=== PATIENT | male | born 1940 | race Caucasian/White ===

== ENCOUNTER 2016-06-05 13:02 | Observation (INO) | payer MEDICARE ==
[2016-06-05] MEDS ORDERED: ASPIRIN 325 MG TABLET PO ONE (13:32)
--- NOTE | 2016-06-05 13:32 | ER Document Report ---
ED Neuro Symptoms/Deficit - General Chief Complaint: S/S of Possible Stroke Stated Complaint: FORGETFULLNESS Notes: The patient is a 76-year-old male, past medical history hypertension, presents with sudden onset of confusion that began at 11:30 today. According to his who is at bedside, the patient was driving into town and then forgot where he was supposed to go and began to drive on the other side of the road. The patient is still confused and cannot remember the month. At baseline, the patient is independent and has a sharp intellect. Denies chest pain, shortness of breath, fevers, cough, weakness, numbness, headache, head injury TRAVEL OUTSIDE OF THE [place] IN LAST 30 DAYS: No Past Medical History - Social History Smoking Status: Former Smoker Family History: Reviewed & Not Pertinent Review of Systems - Review of Systems Notes: REVIEW OF SYSTEMS: CONSTITUTIONAL: -fevers, -chills EENT: -eye pain, -difficulty swallowing, -nasal congestion CARDIOVASCULAR:-chest pain, -syncope. RESPIRATORY: -cough, -SOB GASTROINTESTINAL: -abdominal pain, -nausea, -vomiting, -diarrhea GENITOURINARY: -dysuria, -hematuria MUSCULOSKELETAL: -back pain, -neck pain SKIN: -rash or skin lesions. HEMATOLOGIC: -easy bruising or bleeding. LYMPHATIC: -swollen, enlarged glands. NEUROLOGICAL: -headache, +confusion PSYCHIATRIC: -anxiety, -depression. ALL OTHER SYSTEMS REVIEWED AND NEGATIVE. Physical Exam - Notes Notes: PHYSICAL EXAMINATION: GENERAL: Well-appearing, well-nourished and in no acute distress. HEAD: Atraumatic, normocephalic. EYES: Pupils equal round and reactive to light, extraocular movements intact, sclera anicteric, conjunctiva are normal. ENT: nares patent, oropharynx clear without exudates. Moist mucous membranes. NECK: Normal range of motion, supple without lymphadenopathy LUNGS: Breath sounds clear to auscultation bilaterally and equal. No wheezes rales or rhonchi. HEART: Regular rate and rhythm without murmurs ABDOMEN: Soft, nontender, normoactive bowel sounds. No guarding, no rebound. No masses appreciated. EXTREMITIES: Normal range of motion, no pitting or edema. No cyanosis. NEUROLOGICAL: Cranial nerves grossly intact. Normal speech, normal gait. Normal sensory, motor, and reflex exams. Knows year he was born, does not know current month. PSYCH: Normal mood, normal affect. SKIN: Warm, Dry, normal turgor, no rashes or lesions noted. Course - Re-evaluation Re-evalutation: On arrival, patient immediately seen and stroke alert called. CT did not show any acute changes. NIHSS score of 1. Symptoms improved after 1.5 hours. Not a TPA candidate due to the low NIH stroke scale and rapidly improving symptoms. ABCD2 score is 4. Aspirin provided. Spoke to Dr. Mckeon and will bring patient in as telemetry observation for further evaluation treatment. Patient and comfortable with plan. - Laboratory Result Diagrams: 06/05/16 13:20 06/05/16 13:20 - Diagnostic Test Radiology reviewed: Image reviewed, Reports reviewed - EKG Interpretation by Me EKG shows normal: Sinus rhythm, [place], Intervals, QRS Complexes, ST-T Waves Critical Care Note - Critical Care Note Total time excluding time spent on procedures (mins): 45 ED Alteplase Inc/Exc Criteria - Inclusion Criteria: 1: Patient presented to ED within 3 hours of acute ischemic stroke symptom onset ? -: Yes 2: Did baseline CT exclude intracranial hemorrhage and/or other risk factors? -: Yes 3: Is the age of the patient 18 years of age or greater? -: Yes : If any of the above questions are answered "NO" then stop, patient is not a candidate for Alteplase, : If all of the above questions are answered "YES" then continue with Exclusion Criteria. - Exclusion Criteria: 1: Is there evidence of intracranial hemorrhage on baseline CT? -: No 2: Is there suspicion of subarachnoid hemorrhage (even if CT negative)? -: No 3: Is there a history of serious head trauma, recent previous stroke or OH within 3 months? -: No 4: Does the patient have a clinical presentation consistent with OH or post-OH pericarditis? -: No 5: Is there history of intracranial hemorrhage? -: No 6: On repeated measurement is Systolic BP greater than 185mmHg or Diastolic BP greater that 110 mmHg and is aggressive treatment needed to reduce blood pressure to these limits (e.g. constant infusion of an anti-hypertensive)? -: No 7: Did the patient awake with stroke symptoms? -: No 8: Has the patient had a lumbar puncture or an arterial puncture at a non- compressile site within 7 days? -: No 9: With in the last 14 days did the patient have surgery or major trauma? -: No 10: Is the patient or less than 2 weeks? -: No 11: Was there any active bleeding or acute trauma? -: No 12: Does the patient have intracranial neoplasm, arteriovenous malformation or aneurysm? -: No 13: Does the patient have abnormal glucose (less than 50 or greater than 400mg/ dl)? Record glucose in Comment. -: No 14: Patient has rapidly improving symptoms at the time Alteplase is to be Administered. -: No 15: Does the patient have any risks for bleeding, including but not limited to: a.: Current use of Coumadin with PT greater than 15 seconds or INR greater than 1.7. b.: Current use of Pradaxa (Dabigatran). c.: Heparin administereed within the past 48 hours and PTT elevated. d.: Platelet count less than 100,000/mm. e.: Major surgery or serious trauma within 14 days. f.: Gastrointestinal or gynecological urinary bleeding within 14 days. g.: Myocardial Infarction (OH) within 3 months. -: No : If the answer to any of the above questions is "YES" then stop, the patient is not a candidate for Alteplase. : If the answer to all of the above questions is "NO" then the patient may be eligible for the Administration of Alteplase. : If the patient is noted to have seizure activity at onset of Stroke symptoms; Consult Neurologist for further evaluation. - The patient is: -: Included and is eligible to receive Alteplase. *Initiate bed placement at higher level of care* --: No Reviewd risks & benefits of thrombolytic therapy: I have reviewed the risks and benefits of thrombolytic therapy with the patient and/or his/her family. Yes -: Excluded and not eligible to receive Alteplase for the above exclusions. --: Yes - Low NIHSS -: Excluded and not eligible to receive Alteplase for other reasons (specify in comments): - Diagnosis of TIA: -: Patient presented with transient symptoms that are now resolved and no other neurologic findings are currently present. List symptoms in comments. -: Patient is NOT a candidate for tPA. -: ____(put name in comment) has been consulted for admission and continued evaluation of risk factor assessment. ED NIH Stroke Scale - NIH Stroke Scale When completed:: Before Alteplase *: 1. NIH scale should be completed with appropriate accompanying assessment tools. *: 2. The NIH should reflect what the patient is capable of doing and should not be coached by the clinician. 1a. Level of Consciousness: 0=Alert;keenly responsive -: 1=Drowsy -: 2=Obtunded -: 3=Coma/unresponsive or reflex to noxious stimuli. 1a. Responses: 0 1b. Orientation Questions: a. What month is it? -: b. How old are you? -: 0=Answers both questions correctly. -: 1=Answers one question correctly or patient is intubated or has orotracheal trauma. -: 2=Answers neither question correctly. 1b. Responses: 1 1c. Response to commands: a. Open and close eyes? -: b. Ore Crushing [employer]or and release hand? -: Credit is given despite weakness. Demonstration of task is permitted. Substitute command if hands cannot be used. -: 0=Performs both tasks correctly -: 1=Performs one task correctly -: 2=Performs neither task correctly 1c. Responses: 0 2. Gaze: Establish eye contact and instruct patient to "Follow my finger" -: 0=Normal -: 1=Partial gaze palsy. Gaze is abnormal in one or both eyes, but where forced deviation or total gaze paresis is not present. -: 2=Forced deviation or total gaze paresis. 2. Responses: 0 3. Visual [place]: Sees fingers in all four quadrants. -: 0=No visual loss. -: 1=Partial hemianopsia. -: 2=Complete hemianopsia. -: 3=Bilateral hemianopsia (including Cortical blindness) 3. Responses: 0 4. Facial Movement: Instruct patient to: -: a. Show me your teeth -: b. Raise your eyebrows -: c. Close your eyes -: d. Smile -: 0=Normal symmetrical movement -: 1=Minor paralysis (flattened nasolabial fold, asymmetry on smiling). -: 2=Partial paralysis (total or near total paralysis of lower face). -: 3=Complete paralysis of upper and lower face 4. Responses: 0 5. Motor functions (left arm): Alternate sides and extend each arm with palms down (90 degrees if sitting or 45 degrees for supine). -: 0=No drift;limb holds for full 10 seconds. -: 1=Drift; limb holds but drifts down before full 10 seconds, but does not hit bed. -: 2=Some effort against gravity; limb cannot get to or maintain position. -: 3=No effort against gravity; limb falls. -: 4=No movement. -: UN=Amputation, joint fusion, explain in comments. 5. Responses (left arm): 0 5. Motor Functions (right arm): Alternate sides and extend each arm with palms down (90 degrees if sitting or 45 degrees for supine). -: 0=No drift;limb holds for full 10 seconds. -: 1=Drift; limb holds but drifts down before full 10 seconds, but does not hit bed. -: 2=Some effort against gravity; limb cannot get to or maintain position. -: 3=No effort against gravity; limb falls. -: 4=No movement. -: UN=Amputation, joint fusion, explain in comments. 5. Responses (right arm): 0 6. Motor Functions (left leg): With patient lying supine, alternate sides and extend each leg (30 degrees always while supine). -: 0=No drift, leg holds position for full 5 seconds -: 1=Drift; leg falls before full 5 seconds but does not hit bed. -: 2=Some effort against gravity, leg falls to bed but some effort against gravity. -: 3=No effort against gravity, leg falls to bed immediately. -: 4=No movement. -: UN=Amputation, joint fusion; explain in comments. 6. Responses (left leg): 0 6. Motor Functions (right leg): With patient lying supine, alternate sides and extend each leg (30 degrees always while supine). -: 0=No drift, leg holds position for full 5 seconds -: 1=Drift; leg falls before full 5 seconds but does not hit bed. -: 2=Some effort against gravity, leg falls to bed but some effort against gravity. -: 3=No effort against gravity, leg falls to bed immediately. -: 4=No movement. -: UN=Amputation, joint fusion; explain in comments. 6. Responses (right leg): 0 7. Limb Ataxia: With eyes open instruct patient to: -: a. "Touch your finger to your nose". -: b. "Touch your heel to your lamb" -: 0=Absent -: 1=Present in one limb. -: 2=Present in two limbs. -: UN=Amputation or joint fusion; explain in comments. 7. Responses: 0 8. Sensory: Test sensation using pinprick or noxious stimuli. Test as many body parts as possible. -: 0=Normal;no sensory loss -: 1=Mile to moderate sensory loss (patient feels pin prick but is less sharp on affected side). -: 2=Severe or total sensory loss. 8. Responses: 0 9. Best Language: Instruct patient to: -: a. "Describe what you see in this picture." -: b. "Name the items in this picture." -: c. "Read these sentences." -: 0=No aphasia, normal -: 1=Mild to moderate aphasia. -: 2=Severe aphasia -: 3=Mute, global aphasia, no usable speech or auditory comprehension. 9. Responses: 0 10. Articulation, Dysarthia: Instruct patient to: -: "Read these words" or "Repeat these words" -: 0=Normal -: 1=Mild to moderate; patient may slur some words but can be understood without difficulty. -: 2=Severe; patients speech so slurred as to be unintelligible in the absence of dysphasia. -: UN=Intubated or other physical barrier, explain in comments. 10. Responses: 0 11. Extinction or inattention: 0=No abnormality -: 1= Visual, tactile, auditory, spatial, or personal inattention or extinction to bilateral simulation in one or the sensory modalities. -: 2=Profound denis-inattention or denis-inattention to more than one modality; does not recognize own hand. 11. Responses: 0 Total Score: 1 Discharge - Discharge Clinical Impression: Confusion TIA (transient ischemic attack) Qualifiers: Transient cerebral ischemia type: other Qualified Code(s): G45.8 - Other transient cerebral ischemic attacks and related syndromes Condition: Good Disposition: ADMITTED OBSERVATION Referrals: SONJA SORENSEN MD [Primary Care Provider] - Follow up as needed
[2016-06-05 13:42] LABS: ABSOLUTE EOSINOPHILS # (AUTO) 0.3 10^3/uL (0.0-0.6); ABSOLUTE LYMPHOCYTES (AUTO) 2.3 10^3/uL (0.5-4.7); ABSOLUTE MONOCYTES (AUTO) 0.7 10^3/uL (0.1-1.4); BASOPHILS % (AUTO) 0.3 % (0-2); EOSINOPHILS % (AUTO) 3.2 % (0-6); HEMATOCRIT 44.1 % (37.9-51.0); HEMOGLOBIN 14.4 g/dL (13.5-17.0); HGB HCT DIFFERENCE -0.9; LYMPHOCYTES % (AUTO) 27.5 % (13-45); MEAN CORPUSCULAR HEMOGLOBIN 29.4 pg (27.0-33.4); MEAN CORPUSCULAR HGB CONC 32.7 g/dL (32.0-36.0); MEAN CORPUSCULAR VOLUME 90 fl (80-97); MONOCYTES % (AUTO) 8.2 % (3-13); PROTHROMBIN TIME 13.4 SEC (11.4-15.4); RED BLOOD COUNT 4.91 10^6/uL (4.35-5.55); RED CELL DISTRIBUTION WIDTH 14.9 % (11.5-14.0); SEGMENTED NEUTROPHILS % (AUTO) 60.8 % (42-78); WHITE BLOOD COUNT 8.2 10^3/uL (4.0-10.5)
[2016-06-05 13:44] LABS: PARTIAL THROMBOPLASTIN TIME 29.4 SEC (23.5-35.8)
[2016-06-05 13:59] LABS: ALANINE AMINOTRANSFERASE 36 U/L (21-72); ALBUMIN 3.5 g/dL (3.5-5.0); ALKALINE PHOSPHATASE 78 U/L (38-126); ANION GAP 12 (5-19); ASPARTATE AMINO TRANSFERASE 23 U/L (17-59); BILIRUBIN,TOTAL 0.3 mg/dL (0.2-1.3); BLOOD UREA NITROGEN 16 mg/dL (7-20); CALCIUM 8.3 mg/dL (8.4-10.2); CARBON DIOXIDE 24 mmol/L (22-30); CHLORIDE 110 mmol/L (98-107); CREATINE KINASE 99 U/L (55-170); CREATININE RESULT 0.87 mg/dL (0.52-1.25); GLUCOSE 92 mg/dL (75-110); POTASSIUM 3.9 mmol/L (3.6-5.0); SODIUM 146.4 mmol/L (137-145); TOTAL PROTEIN 6.7 g/dL (6.3-8.2)
[2016-06-05 14:11] LABS: CREATINE KINASE MB 3.39 ng/mL (<4.55); TROPONIN I 0.013 ng/mL
[2016-06-05] MEDS ORDERED: ACETAMINOPHEN 325 MG TABLET PO PRN (17:31)
[2016-06-05] MEDS ORDERED: LABETALOL HCL INJ 20 MG/4 ML DISP.SYRIN IV PRN (17:31)
[2016-06-05] MEDS ORDERED: ALBUTEROL SULFATE 0.083% NEB 2.5 MG/3 ML AMPUL NEB PRN (17:39)
[2016-06-05] MEDS ORDERED: ENOXAPARIN SODIUM INJ 40 MG/0.4 ML DISP.SYRIN SUBCUT ONE ×2 (19:00→23:30)
--- NOTE | 2016-06-05 19:02 | PDOC H&P ---
History of Present Illness Admission Date/PCP: 06/05/16 18:41 Primary care provider: SONJA SORENSEN [facility]: [facility] Oncologist: Dr. Juarez [facility] Patient complains of: Confusion History of Present Illness: WENDY MCGOWAN is a 76 year old male who presents for sudden onset at 11:30 AM of confusion lasting about 2 hours. Patient's is at the bedside and states that they were parked in a parking lot at a local restaurant and that patient parked the wrong direction in the parking space. At that time he did not know where he was and did not remember that they had gone to [facility] to by [employer] for the roof. He still does not recall this episode. His behavior improved upon presentation to the emergency department. He has no focal deficits. He has had prior left carotid endarterectomy about 10 years ago but did not have a stroke/TIA at that time. 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 Past Medical History Pulmonary Medical History: Reports: Chronic Obstructive Pulmonary Disease (COPD) , Other - Left lung malignancy/resection 2016 Neurological Medical History: Reports: Other - Neuropathy Renal/ Medical History: Reports: Other - BPH Malignancy Medical History: Reports: Lung Cancer - Left lung malignancy/ resection 2016 Past Surgical History Past Surgical History: Reports: Other - Left lung resection 2016 Social History Information Source: Patient, Relative Lives with: Spouse/Significant other Smoking Status: Former Smoker Frequency of Alcohol Use: None Hx Recreational Drug Use: No Hx Prescription Drug Abuse: No - Advance Directive Resuscitation Status: Full Code Family History Family History: Reviewed & Not Pertinent Parental Family History Reviewed: Yes Children Family History Reviewed: Yes Sibling(s) Family History Reviewed.: Yes Medication/Allergy Home Medications: Aclidinium [place] [Tudorza Pressair for Inh] 400 mcg PO BID 06/05/16 Atorvastatin Calcium 20 mg PO QHS 06/05/16 Budesonide/Formoterol Fumarate [Symbicort 160-4.5 Mcg Inhaler] 06/05/16 Fluorometholone [Fluorometholone] 1 drop OU BID 06/05/16 Isosorbide Mononitrate [Isosorbide Mononitrate ER] 60 mg PO QHS 06/05/16 Potassium Chloride 10 meq PO BID 06/05/16 Roflumilast [Daliresp] 500 mcg PO DAILY 06/05/16 Tamsulosin HCl [Tamsulosin HCl] 0.4 mg PO DAILY 06/05/16 Topiramate [Topiramate] 200 mg PO BID 06/05/16 Review of Systems Constitutional: ABSENT: chills, fever(s), headache(s), weight gain, weight loss Eyes: ABSENT: visual disturbances Ears: ABSENT: hearing changes Cardiovascular: ABSENT: chest pain, dyspnea on exertion, edema, orthropnea, palpitations Respiratory: ABSENT: cough, hemoptysis Gastrointestinal: ABSENT: abdominal pain, constipation, diarrhea, hematemesis, hematochezia, nausea, vomiting Genitourinary: ABSENT: dysuria, hematuria Musculoskeletal: ABSENT: joint swelling Integumentary: ABSENT: rash, wounds Neurological: PRESENT: confusion, memory loss - Patient is amnestic to the time surrounding his confusion today. ABSENT: abnormal gait, abnormal speech, dizziness, focal weakness, lack of coordination, numbness, syncope, weakness Psychiatric: ABSENT: anxiety, depression, homidical ideation, suicidal ideation Endocrine: ABSENT: cold intolerance, heat intolerance, polydipsia, polyuria Hematologic/Lymphatic: ABSENT: easy bleeding, easy bruising Physical Exam Vital Signs: Temp Pulse Resp BP Pulse Ox 77 20 173/76 H 97 06/05/16 16:06 06/05/16 17:47 06/05/16 17:47 06/05/16 17:47 PHYSICAL EXAM: GENERAL: Appears well, no acute distress HEENT: Normocephalic, no scleral icterus, conjunctiva clear, EOEM intact, PERRLA , moist mucous membranes NECK: trachea midline, no thyromegally RESPIRATORY: Clear to auscultation, no wheezes/rhonchi CARDIAC: Regular rate and rhythm, no murmur/danie/rub ABDOMEN: Soft, no distension, no tenderness, no guarding, normal bowel sounds, negative [place] sign RECTAL: deferred : deferred EXTREMITIES: No edema, cyanosis, clubbing MUSCULOSKELETAL: No joint swelling or deformity VASCULAR: normal peripheral pulses NEUROLOGIC: Alert, oriented to person/place/time, normal speech, cranial nerves grossly intact, 5/5 strength in all extremities, tactile sensation intact in all extremities SKIN: No rash, no wounds, no worrisome skin lesions PSYCHIATRIC: Normal mood, normal affect Results Laboratory Results: Labs- All tests 24 hr 06/05/16 06/05/16 06/05/16 13:20 13:20 13:20 WBC 8.2 RBC 4.91 Hgb 14.4 Hct 44.1 MCV 90 MCH 29.4 MCHC 32.7 RDW 14.9 H Plt Count 169 Seg Neutrophils % 60.8 Lymphocytes % 27.5 Monocytes % 8.2 Eosinophils % 3.2 Basophils % 0.3 Absolute Neutrophils 5.0 Absolute Lymphocytes 2.3 Absolute Monocytes 0.7 Absolute Eosinophils 0.3 Absolute Basophils 0.0 PT 13.4 INR 0.99 APTT 29.4 Sodium 146.4 H Potassium 3.9 Chloride 110 H Carbon Dioxide 24 Anion Gap 12 BUN 16 Creatinine 0.87 Est GFR ( Amer) > 60 Est GFR (Non-Af Amer) > 60 Glucose 92 Calcium 8.3 L Total Bilirubin 0.3 Direct Bilirubin 0.0 AST 23 ALT 36 Alkaline Phosphatase 78 Creatine Kinase 99 CK-MB (CK-2) Troponin I Total Protein 6.7 Albumin 3.5 06/05/16 13:20 WBC RBC Hgb Hct MCV MCH MCHC RDW Plt Count Seg Neutrophils % Lymphocytes % Monocytes % Eosinophils % Basophils % Absolute Neutrophils Absolute Lymphocytes Absolute Monocytes Absolute Eosinophils Absolute Basophils PT INR APTT Sodium Potassium Chloride Carbon Dioxide Anion Gap BUN Creatinine Est GFR ( Amer) Est GFR (Non-Af Amer) Glucose Calcium Total Bilirubin Direct Bilirubin AST ALT Alkaline Phosphatase Creatine Kinase CK-MB (CK-2) 3.39 Troponin I 0.013 Total Protein Albumin EKG Comments: Sinus rhythm, left atrial abnormality, inferior/anterior Q waves (he reportedly old per patient's ) Impressions: Chest X-Ray 06/05/16 13:08 IMPRESSION: ELEVATED LEFT HEMIDIAPHRAGM, POSSIBLY RELATED TO PREVIOUS SURGERY. OTHERWISE NO ACUTE RADIOGRAPHIC FINDING IN THE CHEST. Head CT 06/05/16 13:08 IMPRESSION: MILD CHRONIC CHANGES OF ATROPHY AND MICROVASCULAR ISCHEMIA. NO ACUTE PROCESS. Assessment & Plan - Diagnosis (1) TIA (transient ischemic attack) Qualifiers: Transient cerebral ischemia type: other Qualified Code(s): G45.8 - Other transient cerebral ischemic attacks and related syndromes Is this a current diagnosis for this admission?: YesPlan: Aspirin, Lipitor. Check carotid Dopplers. Check MRI of the brain. PT/OT not warranted as patient has no focal deficits. DVT prophylaxis ordered. Monitor on telemetry to exclude dysrhythmia. (2) COPD (chronic obstructive pulmonary disease) Is this a current diagnosis for this admission?: YesPlan: Continue Symbicort. When necessary albuterol. (3) Neuropathy Is this a current diagnosis for this admission?: YesPlan: I would like to decrease patient's Topamax to 100 mg twice daily given presentation of confusion. (4) History of lung cancer Is this a current diagnosis for this admission?: YesPlan: Patient is status post partial left lung resection in 2016. Followed by Dr. Juarez of oncology in [facility]. (5) History of left-sided carotid endarterectomy Is this a current diagnosis for this admission?: YesPlan: This was approximately 10 years ago. Repeat carotid Dopplers. (6) Abnormal EKG Is this a current diagnosis for this admission?: YesPlan: Patient is followed by cardiology in [facility]. Reportedly stress test was negative one year ago. - Time Time Spent: Greater than 70 Minutes
[2016-06-05] MEDS ORDERED: POTASSIUM CHLORIDE 10 MEQ TABLET.SA PO SCH (22:00)
[2016-06-05] MEDS ORDERED: BUDESONIDE/FORMOTEROL 160-4.5 MCG 60 PUFF/6 GM MDI IH SCH (22:00)
[2016-06-05] MEDS ORDERED: TOPIRAMATE 100 MG TABLET PO SCH (22:00)
[2016-06-05] MEDS ORDERED: ATORVASTATIN CALCIUM 20 MG TABLET PO SCH (22:00)
[2016-06-05] MEDS: TAMSULOSIN HCL 0.4 MG CAP.SR.24H PO SCH (23:30)
[2016-06-05] MEDS ORDERED: TAMSULOSIN HCL 0.4 MG CAP.SR.24H PO ONE (23:30)
[2016-06-06] MEDS: TAMSULOSIN HCL 0.4 MG CAP.SR.24H PO SCH (01:30)
[2016-06-06 06:55] LABS: Direct HDL 39 mg/dL (>40); TRIGLYCERIDES 132 mg/dL (<150)
[2016-06-06 07:05] LABS: DIRECT LDL 66 mg/dL (<100)
[2016-06-06] MEDS ORDERED: ENOXAPARIN SODIUM INJ 40 MG/0.4 ML DISP.SYRIN SUBCUT SCH (08:00)
--- NOTE | 2016-06-06 08:33 | PDOC DISCHARGE SUMMARY ---
General - Admit/Disc Date/PCP Admission Date/Primary Care Provider: 06/05/16 17:31 SONJA Olivarez CARLIEKELLIGallo Discharge Date: 06/06/16 - Discharge Diagnosis (1) TIA (transient ischemic attack) Is this a current diagnosis for this admission?: YesSummary: MRI with no acute changes. Carotid dopplers with no stenosis. Aspirin increased from 81mg to 325mg daily. Continue Lipitor. Follow up with PCP. Consider event monitor to rule out arrhythmia. (2) COPD (chronic obstructive pulmonary disease) Is this a current diagnosis for this admission?: Yes (3) Neuropathy Is this a current diagnosis for this admission?: Yes (4) History of lung cancer Is this a current diagnosis for this admission?: Yes (5) History of left-sided carotid endarterectomy Is this a current diagnosis for this admission?: Yes (6) Abnormal EKG Is this a current diagnosis for this admission?: Yes - Additional Information Resuscitation Status: Full Code Discharge Diet: Cardiac Discharge Activity: Activity As Tolerated Home Medications: Acetaminophen/Diphenhydramine [Tylenol Pm Ex-Strength Caplet] 2 tab PO QHS 06/05 Aclidinium Ivor [Tudorza Pressair for Inh] 400 mcg PO BID 06/05/16 Albuterol Sulfate [Albuterol Sulfate 2.5mg/3 mL] 2.5 mg IH DAILYP PRN 06/05/16 Atorvastatin Calcium 20 mg PO QHS 06/05/16 Budesonide/Formoterol Fumarate [Symbicort 160-4.5 Mcg Inhaler] 1 puff IH BID 05/10 Fluorometholone 1 drop OU BID 06/05/16 Fluticasone Propionate [Flonase Nasal [place] 50 Mcg/[place] 16 gm] 1 spray NASL QAM 06/05/16 Isosorbide Mononitrate [Isosorbide Mononitrate ER] 60 mg PO QPM 06/05/16 Ketotifen Fumarate [Refresh] 1 drop BTH_EYE BID 06/05/16 Multivit-Min/FA/Lycopen/Lutein [Centrum Silver Men Tablet] 1 tab PO MOWEFR@1000 06/05/16 Potassium Chloride 10 meq PO BID 06/05/16 Roflumilast [Daliresp] 500 mcg PO QAM 06/05/16 Tamsulosin HCl 0.4 mg PO QHS 06/05/16 Topiramate 200 mg PO BID 06/05/16 Aspirin [Ecotrin 325 mg EC Tablet] 325 mg PO DAILY tabec 06/06/16 History of Present Illness Patient complains of: confusion History of Present Illness: WENDY MCGOWAN is a 76 year old male who presents for sudden onset at 11:30 AM of confusion lasting about 2 hours. Patient's is at the bedside and states that they were parked in a parking lot at a local restaurant and that patient parked the wrong direction in the parking space. At that time he did not know where he was and did not remember that they had gone to town to by [employer] for the roof. He still does not recall this episode. His behavior improved upon presentation to the emergency department. He has no focal deficits. He has had prior left carotid endarterectomy about 10 years ago but did not have a stroke/TIA at that time. 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 Hospital Course Hospital Course: see above Physical Exam Vital Signs: Temp Pulse Resp BP Pulse Ox 83 21 H 165/78 H 92 06/06/16 04:46 06/06/16 06:00 06/06/16 06:01 06/06/16 06:01 Intake & Output 06/05/16 06/06/16 06/07/16 06:59 06:59 06:59 Weight 92.079 kg General appearance: PRESENT: no acute distress, well-developed, well-nourished Head exam: PRESENT: atraumatic, normocephalic Eye exam: PRESENT: conjunctiva pink, EOMI, PERRLA. ABSENT: scleral icterus Ear exam: PRESENT: normal external ear exam Mouth exam: PRESENT: moist, tongue midline Neck exam: ABSENT: carotid bruit, JVD, lymphadenopathy, thyromegaly Respiratory exam: PRESENT: clear to auscultation srinivas. ABSENT: rales, rhonchi, wheezes Cardiovascular exam: PRESENT: RRR. ABSENT: diastolic murmur, rubs, systolic murmur Pulses: PRESENT: normal dorsalis pedis pul Vascular exam: PRESENT: normal capillary refill GI/Abdominal exam: PRESENT: normal bowel sounds, soft. ABSENT: distended, guarding, mass, organolmegaly, rebound, tenderness Rectal exam: PRESENT: deferred Extremities exam: PRESENT: full ROM. ABSENT: calf tenderness, clubbing, pedal edema Neurological exam: PRESENT: alert, awake, oriented to person, oriented to place , oriented to time, oriented to situation, CN II-XII grossly intact. ABSENT: motor sensory deficit Psychiatric exam: PRESENT: appropriate affect, normal mood. ABSENT: homicidal ideation, suicidal ideation Skin exam: PRESENT: dry, intact, warm. ABSENT: cyanosis, rash Results Laboratory Results: 06/06/16 06:27 Triglycerides 132 Cholesterol 130.50 LDL Cholesterol Direct 66 VLDL Cholesterol 26.0 HDL Cholesterol 39 L EKG Comments: Sinus rhythm, left atrial abnormality, inferior/anterior Q waves (reportedly old per patient's ) Impressions: Head MRI 06/05/16 00:00 IMPRESSION: Negative for acute or sub-acute infarction. Chest X-Ray 06/05/16 13:08 IMPRESSION: ELEVATED LEFT HEMIDIAPHRAGM, POSSIBLY RELATED TO PREVIOUS SURGERY. OTHERWISE NO ACUTE RADIOGRAPHIC FINDING IN THE CHEST. Head CT 06/05/16 13:08 IMPRESSION: MILD CHRONIC CHANGES OF ATROPHY AND MICROVASCULAR ISCHEMIA. NO ACUTE PROCESS. Carotid Doppler Study 06/05/16 17:34 IMPRESSION: NO HEMODYNAMICALLY SIGNIFICANT STENOSIS. Qualifiers PATEINT BEING DISCHARGED WITH ANY OF THE FOLLOWING DIAGNOSIS?: Stroke Stroke Pt being discharged on Anti-thrombolytic therapy?: Yes Stroke Pt being discharged on Anti-coagulation therapy?: No Reason(s) for not prescribing Anti-coagulation therapy:: Not indicated Stroke Pt being discharged on Statins?: Yes Plan Discharge Plan: Follow up with PCP, cardiology, oncology. Consider event monitor to rule out arrhythmia. Time Spent: Less than 30 Minutes
[2016-06-06 08:46] VITALS: BP 151/73
[2016-06-06] MEDS ORDERED: ASPIRIN 325 MG TABLET, ENT COATED PO SCH (10:00)
[2016-06-06] MEDS ORDERED: ISOSORBIDE MONONITRATE 60 MG TAB.ER.24H PO SCH (10:00)
--- NOTE | 2016-06-06 14:50 | EKG REPORT ---
SEVERITY:- ABNORMAL ECG - SINUS RHYTHM PROBABLE LEFT ATRIAL ABNORMALITY INFERIOR INFARCT, OLD ANTERIOR INFARCT, AGE INDETERMINATE : Confirmed by: Princess Suarez 06-Jun-2016 14:50:05
== END 2016-06-06 09:08 | disposition home or self-care (01) ==
LOC: ER 13:02 → EH 17:31 → UNDOADMOB 18:41 → EH 18:41
PROVIDERS: ADMIT Family Medicine; ATTEND Family Medicine
DX: G45.9 Transient cerebral ischemic attack, unspecified (principal); Z79.82 Long term (current) use of aspirin; J44.9 Chronic obstructive pulmonary disease, unspecified; G62.9 Polyneuropathy, unspecified; Z85.118 Personal history of other malignant neoplasm of bronchus and lung; R94.31 Abnormal electrocardiogram [ECG] [EKG]; Z98.890 Other specified postprocedural states; Z87.891 Personal history of nicotine dependence
CPT/HCPCS: 93005; 99291; 96360; 96361; 36415 ×2; 82553; 82550; 85025; 85610; 85730; 80053; 84484; 80061; 93880; 70551; 71010; 70450; 93010; G0378 ×2; A9270 ×4; J3490 ×2